=== PATIENT | female | born 1935 | race Caucasian/White ===

== ENCOUNTER → 2016-11-20 | Day surgery (SDC) | payer MEDICARE, BC ==
[~2016-11-20] MED LIST: ISOSULFAN BLUE 50 MG/5 ML VIAL SQ ONE; LACTATED RINGER'S 1000 ML INJ 1,000 ML ONE; LIDOCAINE 1%/EPINEPHrine 1:100,000 SOLN 20 ML VIAL ONE; MIDAZOLAM HCL 2 MG/2 ML VIAL ONE; ONDANSETRON HCL 4 MG/2 ML VIAL IV PUSH ONE; PROPOFOL 200 MG/20 ML AMP IV ONE; ceFAZolin 2 GM PREMIX 50 ML ONE
--- NOTE | 2016-11-20 13:59 | TN ---
cc: KARY ROSS M.D. DATE OF SURGERY: 11/20/2016 PREOPERATIVE DIAGNOSIS Right breast invasive ductal carcinoma. POSTOPERATIVE DIAGNOSIS Right breast invasive ductal carcinoma. PROCEDURE 1. Injection of blue dye right breast. 2. Right axillary sentinel lymph node biopsy x3. 3. Right breast needle-localized lumpectomy. SURGEON Dr. Kary Ross SIGNS AND DISPLAYS SALESPERSON JOSSIE Slaughter ANESTHESIA General. INDICATIONS A very pleasant 81-year-old woman who was recently diagnosed with a right breast invasive ductal carcinoma, moderately differentiated, ER and SD positive, HER-2/shell negative. She is interested in breast conservation therapy. INTRAOPERATIVE FINDINGS Right sentinel lymph node x3. #1 10-second count 922 with a suture. #2 with a 10-second count of 482 without any marking. #3 with a 10-second count of 365 and a looped suture. None of the sentinel lymph nodes were stained blue. The right breast needle localization lumpectomy specimen was sent with a short stitch superior anterior and a long stitch lateral posterior. ESTIMATED BLOOD LOSS Less than 10 mL. The surgical procedure was assisted by my nurse practitioner. My nurse practitioner's presence was necessary throughout the case for assisting with appropriate visualization of the sentinel lymph nodes and the lumpectomy specimen. My LEAD PROCESS ENGINEER was assisting me throughout the duration of the procedure and her skill set was medically necessary to complete this procedure. During the surgical case the surgical clinical reviewer was working at the back table providing appropriate instrumentation and the nurse practitioner was directly assisting me. DESCRIPTION OF PROCEDURE IN DETAIL The patient was identified as Smita Elijah, taken to the operating room and placed in supine position. Sequential compression devices were placed on bilateral lower extremities. The patient had undergone needle localization as well as lymphoscintigraphy and was appropriately marked by the radiologist. The right breast skin was prepped with an alcohol swab. A timeout procedure was performed. Following completion of the timeout procedure to everyone's satisfaction within the room, 5 cc of isosulfan blue dye was injected in the peritumoral and subareolar positions. The right breast and axilla were then prepped and draped in the usual sterile fashion with Betadine. A proposed incision in the right axilla was infiltrated with local anesthetic after the Navigator probe had identified the area of most intense uptake. The incision was carried out with a scalpel and hemostasis was controlled with electrocautery. Dissection continued posteriorly through the subcutaneous fatty tissue until axillary fat was identified. Using the Navigator probe three sentinel nodes were identified and excised from surrounding tissues using primarily electrocautery. Each node had a 10-second count and was passed off the field for pathologic evaluation after marking as discussed above. Visual survey, palpable evaluation and survey with the Navigator probe demonstrated no additional increased uptake within the axilla, no blue dye and no palpably abnormal nodes. The wound was irrigated with saline. Small bleeding points were controlled with electrocautery. Several cc's of local anesthetic was placed in the sentinel lymph node biopsy cavity and the wound was closed with 3-0 Vicryl and 4-0 Monocryl. Attention was then turned towards the lumpectomy. The tumor primary site was in the upper inner quadrant of the breast. It was fairly superficial to the skin. It was felt necessary to remove an ellipse of skin overlying the tumor. Therefore, a hidden scar technique was not chosen. The proposed elliptical incision over the localization needle was made with a marking pen, infiltrated with local anesthetic and incision carried out with a scalpel. Hemostasis was controlled with electrocautery. Dissection continued posteriorly using skin hooks and then retractors in order to identify the localization needle within the breast beneath the dermis and the subcutaneous fatty tissue. The localization needle was divided at the level of the skin, brought into the surgical wound, and a generous portion of tissue was removed surrounding the localization needle within the breast tissue. It was marked with silk suture as discussed above and sent for imaging where Dr. Fraser indicated the specimen looked good containing the clip in the density. The specimen was then sent to pathology. The wound was irrigated copiously with saline. Visual and palpable inspection demonstrated no residual abnormal tissue. The wound was closed in layers using modified oncoplastic closure using 3-0 Vicryl and then 4-0 Monocryl in subcuticular position of the skin. Dressings were applied on both areas with Dermabond due to her adhesive allergy. No additional dressing was placed. The patient tolerated the procedures without apparent complication. Sponge, needle and instrument counts were correct at the end of the case. MD MALINI Galeas/CIARRA /12:24 PM /1:45 PM
== END | disposition home or self-care (01) ==
LOC: ESDC 06:16
PROVIDERS: ATTEND Surgery Trauma Surgery
DX: D05.11 Intraductal carcinoma in situ of right breast (principal)
CPT/HCPCS: 00400; 01610; 19125; 38525; 38792; 88307; J0690; J2250; J2405; J3010; J7120; Q9968